=== PATIENT | female | born 1960 | race Two or more races ===

== ENCOUNTER 2020-02-12 10:23 | Emergency (ER) | payer OTHER ==
[~2020-02-12] VITALS: Ht 170.2 cm; Wt 81.6 kg
[2020-02-12] MEDS ORDERED: VASOTEC20 M1 PO (10:32)
[2020-02-12] MEDS ORDERED: LEVOTHYROXINE25 MCG PO (10:33)
[2020-02-12] MEDS ORDERED: KETO10TA2 PO (12:08)
[2020-02-12] MEDS ORDERED: NORFLEX100MG PO (12:08)
== END 2020-02-12 12:17 | disposition home or self-care (01) ==
LOC: ER 10:23
DX: M25.562 Pain in left knee (principal); S80.02XS Contusion of left knee, sequela; W18.09XS Striking against other object with subsequent fall, sequela

== ENCOUNTER → 2020-04-10 | Outpatient (CLI) | payer OTHER ==
[~2020-04-10] MED LIST: KETO10TA2 PO; LEVOTHYROXINE25 MCG PO; NORFLEX100MG PO; VASOTEC20 M1 PO
== END | disposition home or self-care (01) ==
LOC: MRI 14:32
PROVIDERS: ATTEND Physical Medicine & Rehabilitation
DX: M17.12 Unilateral primary osteoarthritis, left knee (principal); S83.242A Other tear of medial meniscus, current injury, left knee, initial encounter; M22.42 Chondromalacia patellae, left knee
CPT/HCPCS: 73721

== ENCOUNTER 2023-05-28 13:04 | Outpatient (CLI) | payer OTHER | END 2023-05-28 13:05 | disposition home or self-care (01) | LOC: NUCLEAR 13:04 | PROVIDERS: ATTEND Internal Medicine Rheumatology | DX: M81.0 Age-related osteoporosis without current pathological fracture (principal) ==